=== PATIENT | male | born 1995 | race African-American/Black ===

== ENCOUNTER 2018-11-20 13:13 | Emergency (ER) | payer SELFPAY ==
[~2018-11-20] VITALS: Ht 182.9 cm; Wt 66.7 kg
[2018-11-20 14:22] VITALS: BP 120/82
--- NOTE | 2018-11-20 15:33 | NUR ---
MARKED FOR DISCHARGE, WAITING FOR PRINTED ACI
== END 2018-11-20 15:51 | disposition home or self-care (01) ==
LOC: ER 13:15
DX: S16.1XXA Strain of muscle, fascia and tendon at neck level, initial encounter (principal); R51 Headache; V49.49XA Driver injured in collision with other motor vehicles in traffic accident, initial encounter; Y93.89 Activity, other specified; Y92.488 Other paved roadways as the place of occurrence of the external cause; Y99.8 Other external cause status